=== PATIENT | female | born 1990 ===

== ENCOUNTER 2023-02-06 10:50 | Outpatient (CLI) | payer OTHER ==
[~2023-02-06 10:50] MED LIST: IRON325 MG PO; PRENATAL TABLE1 EAC4 PO
== END 2023-02-06 12:46 | disposition home or self-care (01) ==
LOC: PRENATAL 10:50
PROVIDERS: ATTEND Obstetrics & Gynecology Maternal & Fetal Medicine
DX: O35.9XX0 Maternal care for (suspected) fetal abnormality and damage, unspecified, not applicable or unspecified (principal); O35.3XX0 Maternal care for (suspected) damage to fetus from viral disease in mother, not applicable or unspecified; Z3A.20 20 weeks gestation of pregnancy

== ENCOUNTER 2023-05-02 09:02 | Outpatient (CLI) | payer OTHER | END 2023-05-02 11:31 | disposition home or self-care (01) | LOC: PRENATAL 09:02 | PROVIDERS: ATTEND Obstetrics & Gynecology Maternal & Fetal Medicine | DX: O26.849 Uterine size-date discrepancy, unspecified trimester (principal); O35.3XX0 Maternal care for (suspected) damage to fetus from viral disease in mother, not applicable or unspecified; O36.8199 Decreased fetal movements, unspecified trimester, other fetus; Z3A.32 32 weeks gestation of pregnancy ==

== ENCOUNTER 2023-05-30 20:48 | Inpatient (IN) | payer OTHER ==
[~2023-05-30] VITALS: Ht 162.6 cm; Wt 90.3 kg
[2023-05-30] MEDS ORDERED: VALTREX1000 MG PO (21:29)
[2023-05-31] MEDS ORDERED: PRENATAL TABLE1 EAC4 PO (18:28)
[2023-05-31] MEDS ORDERED: VALTREX1000 MG PO (18:29)
== END 2023-06-03 14:13 | disposition home or self-care (01) | DRG 783 ==
LOC: OBS/DEL 20:48 → OB/GYN 05-31 17:32 → LDR 05-31 17:32 → O/R 05-31 21:18 → OB/GYN 05-31 22:32
PROVIDERS: ADMIT Obstetrics & Gynecology; ATTEND Obstetrics & Gynecology
PROC: BY4FZZZ Ultrasonography of Third Trimester, Single Fetus (ICD-10-PCS; 2023-05-30)
PROC: 4A1HXCZ Monitoring of Products of Conception, Cardiac Rate, External Approach (ICD-10-PCS; 2023-05-31)
PROC: BY4FZZZ Ultrasonography of Third Trimester, Single Fetus (ICD-10-PCS; 2023-05-31)
PROC: 10D00Z1 Extraction of Products of Conception, Low, Open Approach (ICD-10-PCS; principal; 2023-06-01)
PROC: 0UB70ZZ Excision of Bilateral Fallopian Tubes, Open Approach (ICD-10-PCS; 2023-06-01)
DX: O36.8130 Decreased fetal movements, third trimester, not applicable or unspecified (principal); O60.14X0 Preterm labor third trimester with preterm delivery third trimester, not applicable or unspecified; Z3A.36 36 weeks gestation of pregnancy; Z37.0 Single live birth; Z20.822 Contact with and (suspected) exposure to COVID-19; Z30.2 Encounter for sterilization